=== PATIENT | female | born 1965 | race Caucasian/White ===

== ENCOUNTER 2017-04-08 18:13 | Emergency (ER) | payer BC ==
[2017-04-08 18:22] VITALS: BP 147/84
--- NOTE | 2017-04-08 18:47 | UC ---
Complaint Female HPI - HPI Summary HPI Summary: urinary urgency and left flank pain began yesterday low grade fevers, no nausea vomiting rigors, no blood in urine - History Of Current Complaint Chief Complaint: UCBackPain Stated Complaint: uti Time Seen by Provider: 04/08/17 18:43 Hx Obtained From: Patient Hx Last Menstrual Period: 3 WEEKS AGO ?: No Onset/Duration: Sudden Onset, Lasting Days - 1, Still Present Timing: Constant Severity Initially: Mild Severity Currently: Moderate Character: Dull Aggravating Factor(s): Urination Alleviating Factor(s): Position Associated Signs And Symptoms: Positive: Fever, Back Pain - Allergies/Home Medications Allergies/Adverse Reactions: Allergies Allergy/AdvReac Type Severity Reaction Status Date / Time No Known Allergies Allergy Verified 04/08/17 18:20 PMH/Surg Hx/FS Hx/Imm Hx Previously Healthy: No Cardiovascular History: Hypertension - Surgical History Surgical History: None - Family History Known Family History: Positive: None - Social History Occupation: Employed Full-time Lives: With Family Alcohol Use: None Substance Use Type: None Smoking Status (MU): Never Smoked Tobacco Review of Systems Constitutional: Fever Skin: Negative Eyes: Negative ENT: Negative Respiratory: Negative Cardiovascular: Negative Gastrointestinal: Negative Genitourinary: Frequency, Urgency Motor: Negative Neurovascular: Negative Musculoskeletal: Negative Neurological: Negative Psychological: Negative Is Patient Immunocompromised?: No All Other Systems Reviewed And Are Negative: Yes Physical Exam Triage Information Reviewed: Yes Appearance: Well-Appearing, No Pain Distress, Well-Nourished Vital Signs: Initial Vital Signs Temp 100.1 F 04/08/17 18:16 Pulse 79 04/08/17 18:16 Resp 18 04/08/17 18:16 BP 147/84 04/08/17 18:16 Pulse Ox 95 04/08/17 18:16 Vital Signs Reviewed: Yes Eye Exam: Normal Eyes: Positive: Conjunctiva Clear ENT Exam: Normal ENT: Positive: Normal ENT inspection, Hearing grossly normal. Negative: Nasal congestion, Trismus, Muffled voice, Hoarse voice Dental Exam: Normal Neck exam: Normal Neck: Positive: Supple, Nontender Respiratory Exam: Normal Respiratory: Positive: Chest non-tender, No respiratory distress, No accessory muscle use Cardiovascular Exam: Normal Cardiovascular: Positive: RRR, Pulses Normal, Brisk Capillary Refill Abdominal Exam: Normal Abdomen Description: Positive: No Organomegaly, Soft, CVA Tenderness (L) - mild. Negative: Hepatomegaly, McBurney's Point Tenderness, Peritoneal Signs Bowel Sounds: Positive: Present Musculoskeletal Exam: Normal Musculoskeletal: Positive: Strength Intact, ROM Intact, No Edema Neurological Exam: Normal Neurological: Positive: Alert, Muscle Tone Normal Psychological Exam: Normal Skin Exam: Normal Diagnostics - Laboratory Diagnostic Studies Completed/Ordered: ua Leuks +3 Nitr. (-) Complaint Female Dx - Course Course Of Treatment: Rocephin, bactrim increase fluids, follow with pcp - Differential Dx/Diagnosis Provider Diagnoses: UTI, hypertension in poor control Discharge - Discharge Plan Condition: Stable Disposition: HOME Prescriptions: Sulfamethox/Trimethoprim DS* [Bactrim DS 800/160 TAB*] 1 tab PO BID #14 tab Patient Education Materials: Urinary Tract Infection in Women (ED), Hypertension (ED) Forms: *Work Release Referrals: Falguni LEGGETT,Muriel Crews [Primary Care Provider] - 1 Week
[2017-04-08] MEDS ORDERED: Lidocaine 1% MPF* 2 ML VIAL INJ ONE (19:06)
[2017-04-08] MEDS ORDERED: cefTRIAXone VIAL(*) 1,000 MG VIAL IM ONE (19:06)
--- NOTE | 2017-04-10 21:01 | UC ---
- Progress Note Progress Note: Urine culture with no growth. Judging by note, seems like there was gaytan Advise f/ u with PCP if symptoms are persisting. Course/Dx - Course Course Of Treatment: Rocephin, bactrim increase fluids, follow with pcp
== END 2017-04-08 19:27 | disposition home or self-care (01) ==
LOC: UCEAST 18:13
DX: N39.0 Urinary tract infection, site not specified (principal); R50.9 Fever, unspecified; I10 Essential (primary) hypertension
CPT/HCPCS: 81003; 87086; 96372; 99212; G0463; J0696

== ENCOUNTER 2018-10-09 11:13 | Emergency (ER) | payer BC ==
[2018-10-09 11:28] VITALS: BP 142/93
--- NOTE | 2018-10-09 11:30 | UC ---
Skin Complaint HPI - HPI Summary HPI Summary: 53-year-old female who got an insect bite to her right lower leg, 2 days ago. She was concerned because the area is still red. - History of Current Complaint Chief Complaint: UCSkin Time Seen by Provider: 10/09/18 11:27 Stated Complaint: RED AREA ON LEG Hx Obtained From: Patient Hx Last Menstrual Period: 3 WEEKS AGO ?: No Onset/Duration: Sudden Onset Skin Exposure Onset/Duration: Days Ago - Incident happened about 2 days ago when she thinks she got a bug bite or bee sting to the area. Timing: Constant Onset Severity: Mild Current Severity: Mild Pain Intensity: 0 Location: Other - Right lower leg medial aspect just below the knee. Aggravating Factor(s): Nothing Alleviating Factor(s): Nothing Associated Signs & Symptoms: Positive: Rash - Mildly itchy. Related History: Insect Bite/Sting - Allergy/Home Medications Allergies/Adverse Reactions: Allergies Allergy/AdvReac Type Severity Reaction Status Date / Time No Known Allergies Allergy Verified 10/09/18 11:28 PMH/Surg Hx/FS Hx/Imm Hx Previously Healthy: Yes Cardiovascular History: Hypertension - Surgical History Surgical History: None - Family History Known Family History: Positive: None - Social History Alcohol Use: None Substance Use Type: None Smoking Status (MU): Never Smoked Tobacco Review of Systems All Other Systems Reviewed And Are Negative: Yes Skin: Positive: Rash - Red area to right proximal medial leg. Is Patient Immunocompromised?: No Physical Exam Triage Information Reviewed: Yes Appearance: Well-Appearing, No Pain Distress, Well-Nourished Vital Signs: Initial Vital Signs Temp 98 F 10/09/18 11:25 Pulse 73 10/09/18 11:25 Resp 16 10/09/18 11:25 BP 142/93 10/09/18 11:25 Pulse Ox 100 10/09/18 11:25 Vital Signs Reviewed: Yes Musculoskeletal Exam: Normal Musculoskeletal: Positive: Strength Intact, ROM Intact, No Edema Neurological: Positive: Alert, Muscle Tone Normal Psychological Exam: Normal Skin: Positive: Other - Patient has a red area to the medial proximal portion of her right leg just below the knee which appears to be an local skin reaction to possibly an insect bite. It measures approximately 4.0 cm in diameter. Nontender on palpation. It is mildly itchy. No raised area and no lesions are present. It is minimally warm to touch. Course/Dx - Course Course Of Treatment: The patient is comfortable here. I believe she sustained an insect bite or sting and this is a local skin reaction to that. I don't believe this is a cellulitis in need of antibiotics at this point in time. She is to apply ice to the sore area she can apply hydrocortisone cream twice a day definite follow- up if it worsens or if she gets red streaks up her leg or runs a fever. - Diagnoses Provider Diagnosis: Insect bite Discharge - Sign-Out/Discharge Documenting (check all that apply): Patient Departure All imaging exams completed and their final reports reviewed: No Studies - Discharge Plan Condition: Good Disposition: HOME Patient Education Materials: Insect Bite or Sting (ED) Referrals: Larissa Casper MD [Primary Care Provider] - Additional Instructions: You may apply hydrocortisone cream to the area twice a day. You may apply ice intermittently throughout the day on 20 minutes off 20 minutes. If the area gets bigger and you develop red streaks or fever you are to follow-up with your primary care provider. - Billing Disposition and Condition Condition: GOOD Disposition: Home
== END 2018-10-09 11:53 | disposition home or self-care (01) ==
LOC: UCEAST 11:13
DX: S80.861A Insect bite (nonvenomous), right lower leg, initial encounter (principal); W57.XXXA Bitten or stung by nonvenomous insect and other nonvenomous arthropods, initial encounter; Y92.9 Unspecified place or not applicable; I10 Essential (primary) hypertension
CPT/HCPCS: 99211; G0463